=== PATIENT | male | born 1935 | race Hispanic/Latino ===

== ENCOUNTER → 2017-09-14 | Outpatient (CLI) | payer OTHER ==
[~2017-09-14] MED LIST: AMLO10TA2 PO; DUTA0.5C17 PO; INSLAN SQ; INSU100I3 SQ; OMEP40CA37 PO
== END | disposition home or self-care (01) ==
LOC: SHCH 11:19
PROVIDERS: ATTEND Internal Medicine Cardiovascular Disease
DX: R13.10 Dysphagia, unspecified (principal); R53.83 Other fatigue
CPT/HCPCS: 93306

== ENCOUNTER → 2017-10-07 | Outpatient (CLI) | payer OTHER | END | disposition home or self-care (01) | LOC: SLP 20:01 | PROVIDERS: ATTEND Internal Medicine Cardiovascular Disease | DX: G47.30 Sleep apnea, unspecified (principal); R53.83 Other fatigue; I10 Essential (primary) hypertension; E11.9 Type 2 diabetes mellitus without complications | CPT/HCPCS: 95810 ==

== ENCOUNTER → 2019-12-23 | Outpatient (CLI) | payer OTHER ==
[~2019-12-23] MED LIST changes: -AMLO10TA2 PO; +AMLO10TA7 PO; +ASCO100031 PO; +ASPI-1443 PO; +ATOR40TA71 PO; +BENZ-51 PO; +CYAN50008 PO; +DULO30CA52 PO; -DUTA0.5C17 PO; +DUTA0.5C18 PO; +FERR-82 PO; +FURO40TA5 PO; +METO50TA18 PO; +OMEP40CA13 PO; -OMEP40CA37 PO; +PANT40TA25 PO; +VITA-328 PO; +[UNRECOGNIZED DRUG - OTHER] PO; +[UNRECOGNIZED DRUG - OTHER] PO
== END | disposition home or self-care (01) ==
LOC: RAH 11:56
PROVIDERS: ATTEND Internal Medicine Cardiovascular Disease
DX: J44.9 Chronic obstructive pulmonary disease, unspecified (principal); J98.11 Atelectasis; Z95.1 Presence of aortocoronary bypass graft
CPT/HCPCS: 71046; 78582; A9540; A9558

== ENCOUNTER 2019-12-26 12:19 | Inpatient (IN) | payer OTHER ==
[~2019-12-26] VITALS: Ht 172.7 cm; Wt 82.5 kg
[~2019-12-26 12:19] MED LIST changes: -ASCO100031 PO; -ASPI-1443 PO; -ATOR40TA71 PO; -BENZ-51 PO; -CYAN50008 PO; -DULO30CA52 PO; -FERR-82 PO; -FURO40TA5 PO; -METO50TA18 PO; -PANT40TA25 PO; -VITA-328 PO; -[UNRECOGNIZED DRUG - OTHER] PO; -[UNRECOGNIZED DRUG - OTHER] PO
[2019-12-26 13:58] LABS: BASOPHILS % (AUTO) 0.6 % (0.0-5.0); EOSINOPHILS % (AUTO) 5.5 % (0.0-8.0); HEMATOCRIT 37.9 % (42-54); LYMPHOCYTES % (AUTO) 20.9 % (21.0-51.0); MEAN CORPUSCULAR HEMOGLOBIN 30.7 pg (27.0-33.0); MEAN CORPUSCULAR HGB CONC 34.3 g/dL (32.0-36.0); MEAN CORPUSCULAR VOLUME 89.6 fL (79-99); MONOCYTES % (AUTO) 8.1 % (3.0-13.0); NEUTROPHILS % (AUTO) 64.4 % (40.0-77.0); PLATELET COUNT (AUTO) 307 K/uL (130-400); RED BLOOD CELL COUNT(AUTO) 4.23 MIL/uL (4.50-6.20); RED CELL DISTRIBUTION WIDTH 13.6 % (11.0-15.5); WHITE BLOOD COUNT (AUTO) 8.3 K/uL (4.8-10.8)
[2019-12-26 14:00] LABS: CREATININE 2.1 mg/dL (0.5-1.5); POTASSIUM 3.9 mmol/L (3.5-5.1)
[2019-12-26 14:05] LABS: BILIRUBIN,TOTAL 0.4 mg/dL (0.2-1.0); TOTAL PROTEIN, SERUM 6.9 g/dL (6.0-8.3)
[2019-12-26] MEDS ORDERED: ONDANSETRON HCL 4 MG/2 ML VIAL IV PRN (18:00)
[2019-12-26] MEDS ORDERED: LACTULOSE 20 GM/30 ML UDCUP PO PRN (18:00)
[2019-12-26] MEDS ORDERED: ACETAMINOPHEN 325 MG TAB PO PRN (18:00)
[2019-12-26 19:20] LABS: APPEARANCE,URINE Clear (CLEAR); BILIRUBIN,URINE Negative (NEGATIVE); COLOR,URINE Yellow (YELLOW); GLUCOSE, URINE (UA) Negative (NEGATIVE); KETONES,URINE Negative (NEGATIVE); LEUKOCYTE ESTERASE ,URINE Trace (NEGATIVE); NITRATE,URINE Negative (NEGATIVE); OCCULT BLOOD,URINE Negative (NEGATIVE); PROTEIN,URINE 300 mg/dL (NEGATIVE); UROBILINOGEN,URINE 0.2 mg/dL (0.2-1.0)
[2019-12-26 19:29] LABS: BACTERIA,URINE Rare /HPF (None Seen); RBC,URINE 0-1 /HPF (0-1); SQUAMOUS EPITHELIAL CELL,UR Rare /HPF (0-2)
[2019-12-26] MEDS ORDERED: FAMOTIDINE 20MG TAB 20 MG TAB ONE (20:11)
[2019-12-26] MEDS ORDERED: ENOXAPARIN SODIUM 40 MG/0.4 ML SYRINGE SQ ONE (20:11)
[2019-12-26 20:40] VITALS: BP 156/84
[2019-12-27] VITALS (7 sets, daily range): BP systolic 101–159; BP diastolic 46–79
[2019-12-27] MEDS ORDERED: DEXTROSE 50%-WATER 50 ML DISP.SYRIN IV PRN
[2019-12-27] MEDS ORDERED: GLUCAGON 1MG KIT 1 MG ML IM PRN
[2019-12-27] MEDS ORDERED: ATOR40TA71 PO (00:10)
[2019-12-27] MEDS ORDERED: CYAN50008 PO (00:10)
[2019-12-27] MEDS ORDERED: FERR-82 PO (00:10)
[2019-12-27] MEDS ORDERED: PANT40TA54 PO (00:10)
[2019-12-27] MEDS ORDERED: ASPI-1443 PO (00:10)
[2019-12-27] MEDS ORDERED: VITA-328 PO (00:10)
[2019-12-27] MEDS ORDERED: BENZ-51 PO (00:10)
[2019-12-27] MEDS ORDERED: DULO30CA52 PO (00:10)
[2019-12-27] MEDS ORDERED: FURO40TA5 PO (00:10)
[2019-12-27] MEDS ORDERED: [UNRECOGNIZED DRUG - OTHER] PO (00:10)
[2019-12-27] MEDS ORDERED: [UNRECOGNIZED DRUG - OTHER] PO (00:10)
[2019-12-27] MEDS ORDERED: METO50TA18 PO (00:10)
[2019-12-27] MEDS ORDERED: ASCO100031 PO (00:10)
[2019-12-27] MEDS: ZOLPIDEM TARTRATE 5 MG TAB PO PRN ×2 (01:02→20:40)
[2019-12-27 04:44] LABS: BASOPHILS % (AUTO) 0.5 % (0.0-5.0); EOSINOPHILS % (AUTO) 4.5 % (0.0-8.0); HEMATOCRIT 35.8 % (42-54); LYMPHOCYTES % (AUTO) 28.2 % (21.0-51.0); MEAN CORPUSCULAR HGB CONC 34.6 g/dL (32.0-36.0); MEAN CORPUSCULAR VOLUME 89.5 fL (79-99); MONOCYTES % (AUTO) 9.6 % (3.0-13.0); NEUTROPHILS % (AUTO) 56.9 % (40.0-77.0); PLATELET COUNT (AUTO) 253 K/uL (130-400); RED CELL DISTRIBUTION WIDTH 13.2 % (11.0-15.5)
[2019-12-27 05:12] LABS: CREATININE 2.4 mg/dL (0.5-1.5); POTASSIUM 3.8 mmol/L (3.5-5.1); TROPONIN I 0.07 ng/mL (0.00-0.06)
[2019-12-27] MEDS: INSULIN HUMULIN R 100 UNIT/ML 3ML SQ SCH ×4 (05:44→20:39)
--- NOTE | 2019-12-27 07:09 | NUR ---
D-DIMER RESULTS CALLED IN TO [facility] SALES CLERK, PER SALES CLERK FOLLOW UP WITH TO SEE WHAT HE RECOMMENDS DUE TO PATIENT ALREADY HAS HAD A VQ SCAN OR INCREASE LOVENOX. REPORT GIVEN TO RUT BOWDEN RN. Addendum: 12/27/19 at 0712 by GUILLERMO DE LA O RN RN Amended: Links added.
[2019-12-27] MEDS ORDERED: ENOXAPARIN SODIUM 40 MG/0.4 ML SYRINGE SQ SCH (09:00)
[2019-12-27] MEDS: FAMOTIDINE 20MG TAB 20 MG TAB PO SCH (09:23)
--- NOTE | 2019-12-27 09:30 | NUR ---
Miko from [facility]/Patient states feeds and gives him his medication when she wants. SW met with pt. who is calm and cooperative. Pt. unable to report why he is admitted to hospital or provide with date. Pt. unable to report his profession prior to [facility]. Pt. reports that he resides at home with spouse. Pt. unable to provide information regarding his medications, home health, DME or provider services. SW telephoned pt's spouse who reported that pt's memory has declined recently as has his health. Spouse reports that pt. and spouse reside alone in home; two sons reside within close proximity to home and another in [place]. Spouse reports that all their sons are supportive and assist when asked or needed. Spouse reports that pt. was inpt. at [facility] December 09, 2019, then was dismissed home with PT and nursing from [facility]. Spouse reports PT's last visit was December 23, 2019 and unsure if nursing will resume post discharge from this hospitalization. Spouse reports that prior to decline, pt. was independent with all ADl's, however, now she provides more assistance including medications. Spouse reports that pt. now uses a walker, shower bench and wheelchair when needed. Couple utilizes [facility] for their prescriptions. PCP is Dr. Ly Bradley. Spouse stated that she will provide transportation home at discharge. DCP: Return home with spouse when medically cleared. Piedad Storey/Spouse [phone] Addendum: 12/27/19 at 1357 by EFREN DE LA O Amended: Links added.
--- NOTE | 2019-12-27 10:01 | NUR ---
DYSPHAGIA EVAL COMPLETED. -S/S OF ASPIRATION. RECOMMEND REGULAR TEXTURE, THIN LIQUIDS; PILLS WHOLE WITH LIQUIDS. Addendum: 12/27/19 at 1003 by ABBI FUENTES, [facility] Amended: Links added.
--- NOTE | 2019-12-27 13:59 | NUR ---
NUTRITION EDUCATION RD provided nutrition education via Phone. Pt with advanced age, Hard of hearing through phone. Pt verbalized understanding. Pt reports no GI distress, PO intake "ok". Recommend Glucerna QD. Education materials faxed to [phone]). RN Notified. RD to continue to monitor. Please notify as additional nutrition concerns arise. Thank you. Addendum: 12/27/19 at [address] Amended: Links added.
--- NOTE | 2019-12-27 15:44 | NUR ---
FURNITURE MANAGER PER [facility] FURNITURE MANAGER, [place] CT ANGIO SCAN D/T ELEVATED CR 2.4
--- NOTE | 2019-12-27 17:17 | NUR ---
DCP CM unable to meet w/pt, called spouse on facesheet, spoke to Piedad Storey , discussed dc plans. Pt is assist with ADL's prior to admission, lives at home with spouse. Has a cane, walker, wheelchair, shower chair, [employer] , and uses [facility] for meds. Feels safe to go back home, spouse able ot assist with transportation and needs as necessary. DC plan to home once stable. CM to cont to follow up. Addendum: 12/27/19 at 1718 by CONRADO LUX LVN CM Amended: Links added.
[2019-12-27] MEDS: FUROSEMIDE 10 MG/ML 2ML VIAL IV SCH (17:37)
[2019-12-27] MEDS: ENOXAPARIN SODIUM 40 MG/0.4 ML SYRINGE SQ SCH (20:40)
[2019-12-28 03:57] VITALS: BP 134/81
[2019-12-28] MEDS: FUROSEMIDE 10 MG/ML 2ML VIAL IV SCH ×2 (04:16→15:23)
[2019-12-28] MEDS: INSULIN HUMULIN R 100 UNIT/ML 3ML SQ SCH ×4 (05:14→21:30)
[2019-12-28 05:37] LABS: BASOPHILS % (AUTO) 0.4 % (0.0-5.0); HEMATOCRIT 40.1 % (42-54); LYMPHOCYTES % (AUTO) 18.6 % (21.0-51.0); MEAN CORPUSCULAR HEMOGLOBIN 31.2 pg (27.0-33.0); MEAN CORPUSCULAR HGB CONC 34.4 g/dL (32.0-36.0); MEAN CORPUSCULAR VOLUME 90.5 fL (79-99); NEUTROPHILS % (AUTO) 69.5 % (40.0-77.0); PLATELET COUNT (AUTO) 282 K/uL (130-400); RED BLOOD CELL COUNT(AUTO) 4.43 MIL/uL (4.50-6.20); RED CELL DISTRIBUTION WIDTH 13.2 % (11.0-15.5); WHITE BLOOD COUNT (AUTO) 8.4 K/uL (4.8-10.8)
[2019-12-28 05:53] LABS: ALBUMIN 3.2 g/dL (3.5-5.0); BILIRUBIN,TOTAL 0.4 mg/dL (0.2-1.0); CREATININE 2.1 mg/dL (0.5-1.5); POTASSIUM 3.4 mmol/L (3.5-5.1); TOTAL PROTEIN, SERUM 7.5 g/dL (6.0-8.3)
[2019-12-28 05:58] LABS: B-TYPE NATRIURETIC PEPTIDE 279 pg/mL (0-100)
[2019-12-28 08:24] VITALS: BP 158/93
[2019-12-28 11:28] VITALS: BP 129/77
[2019-12-28] MEDS: FAMOTIDINE 20MG TAB 20 MG TAB PO SCH (12:14)
[2019-12-28] MEDS: ENOXAPARIN SODIUM 40 MG/0.4 ML SYRINGE SQ SCH (12:14)
--- NOTE | 2019-12-28 16:27 | NUR ---
[id number] received telephone consent from spouse Piedad Storey [phone] for IM Letter. I faxed IM Letter to [phone] and placed in chart under consent tab.
[2019-12-28 16:55] VITALS: BP 133/76
[2019-12-28 20:00] VITALS: BP 145/73
[2019-12-28] MEDS: ENOXAPARIN SODIUM 80 MG/0.8 ML SQ SCH (21:27)
[2019-12-28] MEDS: ZOLPIDEM TARTRATE 5 MG TAB PO PRN (21:27)
[2019-12-29] VITALS: BP 123/86
--- NOTE | 2019-12-29 00:35 | NUR ---
NURSING ROUNDS PT IN BED RESTING WITH EYES CLOSED. PT SWEATING, CHECKED BLOOD SUGAR- 218 BS NOTED. PT WOKEN UP WITH LIGHT SHAKING AND NORMAL VOICE. WHEN ASKED HOW WAS HE FEELING, PT REPORTS "FINE". CALLED TELE MONITOR FOR RATE AND RHYTHM, SINUS TACH 102. VS WNL. DOOR LEFT OPEN TO CONTINUE TO MONITOR.
[2019-12-29] MEDS: FUROSEMIDE 10 MG/ML 2ML VIAL IV SCH ×2 (03:06→16:28)
[2019-12-29 04:00] VITALS: BP 132/82
[2019-12-29] MEDS: INSULIN HUMULIN R 100 UNIT/ML 3ML SQ SCH ×3 (06:46→16:29)
[2019-12-29 08:07] VITALS: BP 140/80
[2019-12-29 09:20] LABS: HEMATOCRIT 36.6 % (42-54); MEAN CORPUSCULAR HEMOGLOBIN 30.7 pg (27.0-33.0); MEAN CORPUSCULAR HGB CONC 34.4 g/dL (32.0-36.0); MEAN CORPUSCULAR VOLUME 89.1 fL (79-99); RED BLOOD CELL COUNT(AUTO) 4.11 MIL/uL (4.50-6.20); RED CELL DISTRIBUTION WIDTH 13.5 % (11.0-15.5); WHITE BLOOD COUNT (AUTO) 6.6 K/uL (4.8-10.8)
[2019-12-29 09:34] LABS: CREATININE 2.4 mg/dL (0.5-1.5); POTASSIUM 3.5 mmol/L (3.5-5.1)
[2019-12-29] MEDS: FAMOTIDINE 20MG TAB 20 MG TAB PO SCH (09:36)
[2019-12-29] MEDS: ENOXAPARIN SODIUM 80 MG/0.8 ML SQ SCH (09:37)
[2019-12-29 11:54] VITALS: BP 142/67
[2019-12-29 16:53] VITALS: BP 128/77
--- NOTE | 2019-12-29 17:30 | NUR ---
DISCHARGE PATIENT GIVEN DISCHARGE INSTRUCTIONS VIA TEACH BACK. 20G PIV TO LAC DISCONTINUED, TIP INTACT. PATIENT TO FOLLOW UP WITH DR. KAYDEN SOLORZANO IN 1 WEEK. NO RX GIVEN. PATIENT STABLE AT THIS TIME, WHEELED TO [facility] FOR DISCHARGE BY [facility] IR[facility].
== END 2019-12-29 17:30 | disposition home or self-care (01) | DRG 189 ==
LOC: EDH 12:19 → OBSVTOIN 16:34 → EDHIP 16:34 → 3DH 20:17
PROVIDERS: ADMIT Internal Medicine Pulmonary Disease; ATTEND Internal Medicine Pulmonary Disease
DX: J96.01 Acute respiratory failure with hypoxia (principal); J81.1 Chronic pulmonary edema; N17.9 Acute kidney failure, unspecified; K21.9 Gastro-esophageal reflux disease without esophagitis; N18.9 Chronic kidney disease, unspecified; I12.9 Hypertensive chronic kidney disease with stage 1 through stage 4 chronic kidney disease, or unspecified chronic kidney disease; F03.90 Unspecified dementia, unspecified severity, without behavioral disturbance, psychotic disturbance, mood disturbance, and anxiety; Z85.819 Personal history of malignant neoplasm of unspecified site of lip, oral cavity, and pharynx; I25.10 Atherosclerotic heart disease of native coronary artery without angina pectoris; Z95.1 Presence of aortocoronary bypass graft; Z88.8 Allergy status to other drugs, medicaments and biological substances; Z79.4 Long term (current) use of insulin
CPT/HCPCS: 36415; 71045; 80048; 80053; 81001; 82550; 82948; 83874; 83880; 84484; 85025; 85027; 85378; 92610; 93005; 93970; G0378; J1650; J1815; J1940

== ENCOUNTER → 2020-02-13 | Outpatient (CLI) | payer OTHER ==
[~2020-02-13] MED LIST changes: +ASCO100031 PO; +ASPI-1443 PO; +ATOR40TA71 PO; +BENZ-51 PO; +CYAN50008 PO; +DULO30CA52 PO; -DUTA0.5C18 PO; +FERR-82 PO; +FURO40TA5 PO; -INSLAN SQ; -INSU100I3 SQ; +METO50TA18 PO; +PANT40TA54 PO; +VITA-328 PO; +[UNRECOGNIZED DRUG - OTHER] PO; +[UNRECOGNIZED DRUG - OTHER] PO
== END | disposition home or self-care (01) ==
LOC: SHCH 09:20
PROVIDERS: ATTEND Internal Medicine Cardiovascular Disease
DX: I50.21 Acute systolic (congestive) heart failure (principal)
CPT/HCPCS: 78481; A9512

== ENCOUNTER 2020-03-22 15:41 | Emergency (ER) | payer OTHER ==
[~2020-03-22 15:41] MED LIST changes: +AMLO-258 PO; -AMLO10TA7 PO
[2020-03-22 16:27] LABS: BASOPHILS % (AUTO) 0.5 % (0.0-5.0); HEMATOCRIT 41.8 % (42-54); MEAN CORPUSCULAR HEMOGLOBIN 31.5 pg (27.0-33.0); MEAN CORPUSCULAR HGB CONC 35.2 g/dL (32.0-36.0); MEAN CORPUSCULAR VOLUME 89.5 fL (79-99); MONOCYTES % (AUTO) 9.6 % (3.0-13.0); NEUTROPHILS % (AUTO) 62.6 % (40.0-77.0); PLATELET COUNT (AUTO) 215 K/uL (130-400); RED BLOOD CELL COUNT(AUTO) 4.67 MIL/uL (4.50-6.20); WHITE BLOOD COUNT (AUTO) 7.6 K/uL (4.8-10.8)
[2020-03-22 16:45] LABS: INR 0.9 (0.85-1.15); PARTIAL THROMBOPLASTIN TIME 25.2 SEC (26.3-35.5); PROTHROMBIN TIME 9.8 SEC (9.6-11.6)
[2020-03-22 16:48] LABS: ALBUMIN 3.2 g/dL (3.5-5.0); BILIRUBIN,TOTAL 0.3 mg/dL (0.2-1.0); TOTAL PROTEIN, SERUM 7.1 g/dL (6.0-8.3)
== END 2020-03-22 21:24 | disposition home or self-care (01) ==
LOC: EDH 15:41
DX: R07.89 Other chest pain (principal); E11.9 Type 2 diabetes mellitus without complications; I10 Essential (primary) hypertension; Z88.5 Allergy status to narcotic agent; Z91.012 Allergy to eggs; Z88.8 Allergy status to other drugs, medicaments and biological substances
CPT/HCPCS: 36415; 71046; 80053; 82550; 83605; 83880; 84484; 85025; 85610; 85730; 93005

== ENCOUNTER 2020-08-16 19:21 | Inpatient (IN) | payer OTHER ==
[~2020-08-16] VITALS: Ht 170.2 cm; Wt 83.6 kg
[~2020-08-16 19:21] MED LIST changes: -BENZ-51 PO; +BENZ-70 PO; -CYAN50008 PO; +CYAN50009 PO; -OMEP40CA13 PO; +OMEP40CA21 PO
[2020-08-16 20:03] LABS: BASOPHILS % (AUTO) 0.5 % (0.0-5.0); HEMATOCRIT 37.3 % (42-54); LYMPHOCYTES % (AUTO) 20.8 % (21.0-51.0); MEAN CORPUSCULAR HEMOGLOBIN 32.1 pg (27.0-33.0); MEAN CORPUSCULAR HGB CONC 36.5 g/dL (32.0-36.0); MONOCYTES % (AUTO) 9.3 % (3.0-13.0); NEUTROPHILS % (AUTO) 67.1 % (40.0-77.0); PLATELET COUNT (AUTO) 194 K/uL (130-400); RED BLOOD CELL COUNT(AUTO) 4.24 MIL/uL (4.50-6.20); WHITE BLOOD COUNT (AUTO) 7.3 K/uL (4.8-10.8)
[2020-08-16 20:17] LABS: INR 0.97 (0.85-1.15); PROTHROMBIN TIME 10.6 SEC (9.6-11.6)
[2020-08-16 20:18] LABS: PARTIAL THROMBOPLASTIN TIME 25.5 SEC (26.3-35.5)
[2020-08-16] MEDS ORDERED: NITROGLYCERIN 0.4 MG SL TAB SL ONE (20:18)
[2020-08-16] MEDS ORDERED: NITROGLYCERIN 1GM OINT 1 INCH/1GM TD ONE (20:18)
[2020-08-16] MEDS ORDERED: MORPHINE 2 MG SYG ONE (20:22)
[2020-08-16 20:25] LABS: ALBUMIN 3.1 g/dL (3.5-5.0); BILIRUBIN,TOTAL 0.3 mg/dL (0.2-1.0); CREATININE 2.4 mg/dL (0.5-1.5); POTASSIUM 5.2 mmol/L (3.5-5.1); TOTAL PROTEIN, SERUM 6.8 g/dL (6.0-8.3)
[2020-08-16] MEDS ORDERED: ENOXAPARIN SODIUM 80 MG/0.8 ML SQ ONE (20:51)
[2020-08-16 22:10] LABS: APPEARANCE,URINE Clear (CLEAR); BILIRUBIN,URINE Negative (NEGATIVE); COLOR,URINE Yellow (YELLOW); GLUCOSE, URINE (UA) >=1000 mg/dL (NEGATIVE); KETONES,URINE Negative (NEGATIVE); LEUKOCYTE ESTERASE ,URINE Negative (NEGATIVE); NITRATE,URINE Negative (NEGATIVE); OCCULT BLOOD,URINE Negative (NEGATIVE); PROTEIN,URINE 300 mg/dL (NEGATIVE); UROBILINOGEN,URINE 0.2 mg/dL (0.2-1.0)
[2020-08-16 22:21] LABS: RBC,URINE 0-1 /HPF (0-1)
[2020-08-16 22:22] LABS: BACTERIA,URINE Few /HPF (None Seen); SQUAMOUS EPITHELIAL CELL,UR 0-2 /HPF (0-2)
[2020-08-16] MEDS ORDERED: LABETALOL 20MG SYG IV ONE (22:32)
[2020-08-17] MEDS ORDERED: MORPHINE 2 MG SYG IV PRN (03:30)
[2020-08-17] MEDS ORDERED: NITROGLYCERIN 1GM OINT 1 INCH/1GM TD SCH (03:30)
[2020-08-17] MEDS ORDERED: NITROGLYCERIN 0.4 MG SL TAB SL PRN (03:30)
[2020-08-17] MEDS ORDERED: ACETAMINOPHEN 325 MG TAB PO PRN ×2 (03:45)
[2020-08-17] MEDS ORDERED: LACTULOSE 20 GM/30 ML UDCUP PO PRN (03:45)
[2020-08-17] MEDS ORDERED: ONDANSETRON 4MG INJ IV PRN (03:45)
[2020-08-17 04:42] LABS: BASOPHILS % (AUTO) 0.8 % (0.0-5.0); EOSINOPHILS % (AUTO) 2.7 % (0.0-8.0); HEMATOCRIT 36.9 % (42-54); LYMPHOCYTES % (AUTO) 23.9 % (21.0-51.0); MEAN CORPUSCULAR HEMOGLOBIN 30.9 pg (27.0-33.0); MEAN CORPUSCULAR VOLUME 88.5 fL (79-99); MONOCYTES % (AUTO) 10.3 % (3.0-13.0); PLATELET COUNT (AUTO) 173 K/uL (130-400); RED BLOOD CELL COUNT(AUTO) 4.17 MIL/uL (4.50-6.20); RED CELL DISTRIBUTION WIDTH 12.9 % (11.0-15.5); WHITE BLOOD COUNT (AUTO) 6.6 K/uL (4.8-10.8)
[2020-08-17] MEDS ORDERED: NITROGLYCERIN 1GM OINT 1 INCH/1GM TD ONE ×2 (04:47→10:19)
[2020-08-17 04:51] LABS: ALBUMIN 2.9 g/dL (3.5-5.0); BILIRUBIN,TOTAL 0.3 mg/dL (0.2-1.0); CREATININE 2.2 mg/dL (0.5-1.5); TOTAL PROTEIN, SERUM 6.3 g/dL (6.0-8.3)
[2020-08-17 05:00] LABS: B-TYPE NATRIURETIC PEPTIDE 313 pg/mL (0-100)
[2020-08-17] MEDS ORDERED: HYDRALAZINE HCL 10 MG TABLET ONE ×2 (08:30→14:04)
[2020-08-17] MEDS ORDERED: ASPIRIN 81MG CHEW TAB ONE (08:30)
[2020-08-17] MEDS ORDERED: FAMOTIDINE 20MG VIAL IV ONE (08:31)
[2020-08-17] MEDS: FAMOTIDINE 20MG VIAL IV SCH (09:00)
[2020-08-17] MEDS: ASPIRIN 81MG CHEW TAB PO SCH (09:00)
[2020-08-17] MEDS ORDERED: ENOXAPARIN SODIUM 80 MG/0.8 ML SQ SCH (13:00)
[2020-08-17] MEDS: DEXTROSE 5 % AND 0.9 % NACL 1,000 ML IV SCH (14:00)
[2020-08-17 14:35] LABS: AMYLASE 56 U/L (25-115); LIPASE 101 U/L (114-286)
[2020-08-17] MEDS ORDERED: DEXTROSE 5 % AND 0.9 % NACL 1,000 ML IV ONE (14:53)
[2020-08-17] MEDS ORDERED: ENOXAPARIN SODIUM 80 MG/0.8 ML SQ ONE (14:53)
[2020-08-17] MEDS ORDERED: HALOPERIDOL INJ 5 MG/ML VIAL IM PRN (15:45)
[2020-08-17] MEDS ORDERED: GLUCAGON 1MG KIT 1 MG ML IM PRN (16:45)
[2020-08-17] MEDS ORDERED: DEXTROSE 50%-WATER 50 ML DISP.SYRIN IV PRN (16:45)
[2020-08-17] MEDS ORDERED: METOPROLOL TARTRATE 50 MG TAB ONE (16:47)
[2020-08-17] MEDS ORDERED: FUROSEMIDE 40 MG TABLET ONE (16:47)
[2020-08-17] MEDS ORDERED: METOPROLOL SUCCINATE 50 MG TAB.SR.24H PO SCH (17:00)
[2020-08-17] MEDS ORDERED: FUROSEMIDE 40 MG TABLET PO SCH (17:30)
[2020-08-17 21:33] VITALS: BP 207/92
[2020-08-17] MEDS: HYDRALAZINE HCL 10 MG TABLET PO SCH (21:38)
[2020-08-17] MEDS: INSULIN HUMULIN R 100 UNIT/ML 3ML SQ SCH (21:45)
[2020-08-18] VITALS (11 sets, daily range): BP systolic 125–184; BP diastolic 56–121
[2020-08-18] MEDS: DEXTROSE 5 % AND 0.9 % NACL 1,000 ML IV SCH ×2 (03:20→13:42)
[2020-08-18 05:42] LABS: HEMATOCRIT 40.5 % (42-54); MEAN CORPUSCULAR HEMOGLOBIN 31.3 pg (27.0-33.0); MEAN CORPUSCULAR HGB CONC 35.6 g/dL (32.0-36.0); RED BLOOD CELL COUNT(AUTO) 4.6 MIL/uL (4.50-6.20); RED CELL DISTRIBUTION WIDTH 12.7 % (11.0-15.5); WHITE BLOOD COUNT (AUTO) 6.9 K/uL (4.8-10.8)
[2020-08-18 06:19] LABS: CREATININE 2.1 mg/dL (0.5-1.5); POTASSIUM 3.6 mmol/L (3.5-5.1)
[2020-08-18 06:25] LABS: THYROID STIMULATING HORMONE 3.07 uIU/mL (0.36-3.74)
[2020-08-18] MEDS: INSULIN HUMULIN R 100 UNIT/ML 3ML SQ SCH ×4 (07:09→19:54)
[2020-08-18] MEDS: HYDRALAZINE HCL 10 MG TABLET PO SCH ×3 (09:26→21:14)
[2020-08-18] MEDS: METOPROLOL SUCCINATE 50 MG TAB.SR.24H PO SCH (09:26)
[2020-08-18] MEDS: FAMOTIDINE 20MG VIAL IV SCH (09:26)
[2020-08-18] MEDS: ATORVASTATIN 20 MG TABLET PO SCH (09:26)
[2020-08-18] MEDS: FUROSEMIDE 40 MG TABLET PO SCH (09:27)
[2020-08-18] MEDS: ISOSORBIDE MONO 60MG SR TAB PO SCH (09:27)
[2020-08-18] MEDS: ASPIRIN 81MG CHEW TAB PO SCH (09:27)
[2020-08-18] MEDS ORDERED: REGADENOSON 0.4 MG/5 ML PF SYG IVP SCH (11:30)
[2020-08-18] MEDS: EZETIMIBE 10 MG TAB PO SCH (11:30)
[2020-08-18] MEDS ORDERED: HYDROXYZINE 25 MG TABLET PO SCH (16:30)
[2020-08-18] MEDS ORDERED: INSU100V37 SQ (18:27)
[2020-08-18] MEDS ORDERED: INSU100I15 SQ (18:27)
[2020-08-18] MEDS: QUETIAPINE FUMARATE 25 MG TAB PO SCH (21:14)
[2020-08-18] MEDS: HYDROXYZINE 25 MG TABLET PO SCH (21:14)
[2020-08-18] MEDS: RISPERIDONE 1 MG TABLET PO SCH (21:14)
[2020-08-19] VITALS (7 sets, daily range): BP systolic 95–154; BP diastolic 50–86
[2020-08-19] MEDS: DEXTROSE 5 % AND 0.9 % NACL 1,000 ML IV SCH (05:38)
[2020-08-19] MEDS: INSULIN HUMULIN R 100 UNIT/ML 3ML SQ SCH ×4 (06:53→21:59)
[2020-08-19] MEDS: MEMANTINE HCL 5 MG TABLET PO SCH (07:32)
[2020-08-19] MEDS: HYDRALAZINE HCL 10 MG TABLET PO SCH ×3 (07:33→21:58)
[2020-08-19] MEDS: FAMOTIDINE 20MG VIAL IV SCH (07:34)
[2020-08-19] MEDS: ATORVASTATIN 20 MG TABLET PO SCH (07:34)
[2020-08-19] MEDS: FUROSEMIDE 40 MG TABLET PO SCH (07:34)
[2020-08-19] MEDS: HYDROXYZINE 25 MG TABLET PO SCH ×2 (07:34→21:58)
[2020-08-19] MEDS: METOPROLOL SUCCINATE 50 MG TAB.SR.24H PO SCH (07:34)
[2020-08-19] MEDS: ISOSORBIDE MONO 60MG SR TAB PO SCH (07:34)
[2020-08-19] MEDS: EZETIMIBE 10 MG TAB PO SCH (07:35)
[2020-08-19] MEDS: ASPIRIN 81MG CHEW TAB PO SCH (07:35)
[2020-08-19] MEDS ORDERED: METO-391 PO (10:29)
[2020-08-19] MEDS ORDERED: LISI10TA24 PO (10:29)
[2020-08-19] MEDS ORDERED: EZET10TA48 PO (10:32)
[2020-08-19 11:11] LABS: CREATININE 2.8 mg/dL (0.5-1.5)
[2020-08-19] MEDS: FLUDROCORTISONE ACETATE 0.1 MG TABLET PO SCH (13:45)
[2020-08-19] MEDS: QUETIAPINE FUMARATE 25 MG TAB PO SCH (21:57)
[2020-08-19] MEDS: RISPERIDONE 1 MG TABLET PO SCH (21:57)
[2020-08-20 04:47] LABS: POTASSIUM 3.2 mmol/L (3.5-5.1)
[2020-08-20 05:56] VITALS: BP 110/57
[2020-08-20] MEDS: INSULIN HUMULIN R 100 UNIT/ML 3ML SQ SCH ×4 (07:30→21:17)
[2020-08-20 08:00] VITALS: BP 177/87
[2020-08-20] MEDS: FAMOTIDINE 20MG VIAL IV SCH (12:18)
[2020-08-20] MEDS: METOPROLOL SUCCINATE 50 MG TAB.SR.24H PO SCH (12:18)
[2020-08-20] MEDS: 0.9%NACL 1000ML 1,000 ML IV SCH ×2 (12:18→21:13)
[2020-08-20] MEDS: HYDRALAZINE HCL 10 MG TABLET PO SCH ×3 (12:19→21:14)
[2020-08-20] MEDS: ISOSORBIDE MONO 60MG SR TAB PO SCH (12:20)
[2020-08-20] MEDS: FUROSEMIDE 40 MG TABLET PO SCH (12:20)
[2020-08-20] MEDS: FLUDROCORTISONE ACETATE 0.1 MG TABLET PO SCH (12:20)
[2020-08-20] MEDS: HYDROXYZINE 25 MG TABLET PO SCH ×2 (12:21→21:14)
[2020-08-20] MEDS: MEMANTINE HCL 5 MG TABLET PO SCH (12:21)
[2020-08-20] MEDS: ATORVASTATIN 20 MG TABLET PO SCH (12:21)
[2020-08-20] MEDS: ASPIRIN 81MG CHEW TAB PO SCH (12:21)
[2020-08-20] MEDS: EZETIMIBE 10 MG TAB PO SCH (12:21)
[2020-08-20] MEDS ORDERED: RENAL DOSE IV PRN (13:30)
[2020-08-20 16:00] VITALS: BP 134/65
[2020-08-20] MEDS ORDERED: Vitamin B Complex/Vit C/Folic Acid PO SCH (16:15)
[2020-08-20 20:41] VITALS: BP 152/58
[2020-08-20] MEDS: RISPERIDONE 1 MG TABLET PO SCH (21:14)
[2020-08-20] MEDS: QUETIAPINE FUMARATE 25 MG TAB PO SCH (21:14)
[2020-08-21 01:07] VITALS: BP 136/61
[2020-08-21 01:08] VITALS: BP 136/61
[2020-08-21] MEDS: 0.9%NACL 1000ML 1,000 ML IV SCH ×3 (02:00→18:00)
[2020-08-21 04:15] LABS: BASOPHILS % (AUTO) 0.3 % (0.0-5.0); EOSINOPHILS % (AUTO) 0.9 % (0.0-8.0); HEMATOCRIT 36.4 % (42-54); LYMPHOCYTES % (AUTO) 8.5 % (21.0-51.0); MEAN CORPUSCULAR HEMOGLOBIN 31.3 pg (27.0-33.0); MEAN CORPUSCULAR HGB CONC 34.9 g/dL (32.0-36.0); MEAN CORPUSCULAR VOLUME 89.7 fL (79-99); MONOCYTES % (AUTO) 9.7 % (3.0-13.0); NEUTROPHILS % (AUTO) 80.2 % (40.0-77.0); PLATELET COUNT (AUTO) 171 K/uL (130-400); RED BLOOD CELL COUNT(AUTO) 4.06 MIL/uL (4.50-6.20); RED CELL DISTRIBUTION WIDTH 12.6 % (11.0-15.5); WHITE BLOOD COUNT (AUTO) 9.6 K/uL (4.8-10.8)
[2020-08-21 04:23] VITALS: BP 128/61
[2020-08-21 04:49] LABS: BILIRUBIN,TOTAL 0.4 mg/dL (0.2-1.0); CREATININE 2.8 mg/dL (0.5-1.5); MAGNESIUM 1.9 mg/dL (1.80-2.40); PHOSPHORUS 3.6 mg/dL (2.5-4.9); THYROID STIMULATING HORMONE 2.19 uIU/mL (0.36-3.74); TOTAL PROTEIN, SERUM 6.5 g/dL (6.0-8.3); URIC ACID 6.9 mg/dL (2.6-7.2)
[2020-08-21] MEDS ORDERED: POTASSIUM CHLORIDE 20MEQ/100ML 100 ML IV PRN (05:30)
[2020-08-21] MEDS ORDERED: KCL 20 MEQ ERTAB PO PRN (05:30)
[2020-08-21] MEDS ORDERED: POTASSIUM CHLORIDE 10% ELIXIR 20 MEQ/15 ML UDCUP PO PRN (05:30)
[2020-08-21] MEDS ORDERED: LIDOCAINE HCL-MPF 1% 2ML VIAL IV PRN (05:30)
[2020-08-21] MEDS: POTASSIUM CHLORIDE 10% ELIXIR 20 MEQ/15 ML UDCUP ONE ×2 (05:31→06:45)
[2020-08-21] MEDS: INSULIN HUMULIN R 100 UNIT/ML 3ML SQ SCH ×4 (05:47→20:37)
[2020-08-21] MEDS: HYDRALAZINE HCL 10 MG TABLET PO SCH ×3 (09:45→20:35)
[2020-08-21] MEDS: ATORVASTATIN 20 MG TABLET PO SCH (09:45)
[2020-08-21] MEDS: EZETIMIBE 10 MG TAB PO SCH (09:45)
[2020-08-21] MEDS: FAMOTIDINE 20MG VIAL IV SCH (09:45)
[2020-08-21] MEDS: ASPIRIN 81MG CHEW TAB PO SCH (09:45)
[2020-08-21] MEDS: HYDROXYZINE 25 MG TABLET PO SCH ×2 (09:46→20:29)
[2020-08-21] MEDS: METOPROLOL SUCCINATE 50 MG TAB.SR.24H PO SCH (09:46)
[2020-08-21] MEDS: FLUDROCORTISONE ACETATE 0.1 MG TABLET PO SCH (09:46)
[2020-08-21] MEDS: MEMANTINE HCL 5 MG TABLET PO SCH (09:46)
[2020-08-21] MEDS: ISOSORBIDE MONO 60MG SR TAB PO SCH (09:46)
[2020-08-21] MEDS ORDERED: KCL 20 MEQ ERTAB PO STA (16:12)
[2020-08-21 16:16] VITALS: BP 172/77
[2020-08-21 20:16] VITALS: BP 191/83
[2020-08-21] MEDS: RISPERIDONE 1 MG TABLET PO SCH (20:29)
[2020-08-21] MEDS: QUETIAPINE FUMARATE 25 MG TAB PO SCH (20:29)
[2020-08-21 23:00] VITALS: BP 195/75
[2020-08-22] VITALS (7 sets, daily range): BP systolic 111–182; BP diastolic 61–92
[2020-08-22] MEDS: 0.9%NACL 1000ML 1,000 ML IV SCH (02:00)
[2020-08-22 04:54] LABS: CREATININE 2.3 mg/dL (0.5-1.5); MAGNESIUM 1.8 mg/dL (1.80-2.40); POTASSIUM 4.7 mmol/L (3.5-5.1)
[2020-08-22] MEDS: INSULIN HUMULIN R 100 UNIT/ML 3ML SQ SCH ×4 (05:55→20:35)
[2020-08-22 06:08] LABS: BASOPHILS % (AUTO) 0.7 % (0.0-5.0); EOSINOPHILS % (AUTO) 3.2 % (0.0-8.0); HEMATOCRIT 33.5 % (42-54); LYMPHOCYTES % (AUTO) 17.1 % (21.0-51.0); MEAN CORPUSCULAR HEMOGLOBIN 31.6 pg (27.0-33.0); MEAN CORPUSCULAR HGB CONC 35.8 g/dL (32.0-36.0); MEAN CORPUSCULAR VOLUME 88.2 fL (79-99); MONOCYTES % (AUTO) 11.5 % (3.0-13.0); NEUTROPHILS % (AUTO) 67.2 % (40.0-77.0); PLATELET COUNT (AUTO) 161 K/uL (130-400); RED CELL DISTRIBUTION WIDTH 12.6 % (11.0-15.5)
[2020-08-22] MEDS: MEMANTINE HCL 5 MG TABLET PO SCH (09:00)
[2020-08-22] MEDS: HYDROXYZINE 25 MG TABLET PO SCH (09:00)
[2020-08-22] MEDS: METOPROLOL SUCCINATE 50 MG TAB.SR.24H PO SCH (09:43)
[2020-08-22] MEDS: ISOSORBIDE MONO 60MG SR TAB PO SCH (09:43)
[2020-08-22] MEDS: EZETIMIBE 10 MG TAB PO SCH (09:44)
[2020-08-22] MEDS: ASPIRIN 81MG CHEW TAB PO SCH (09:44)
[2020-08-22] MEDS: HYDRALAZINE HCL 10 MG TABLET PO SCH ×3 (09:45→20:31)
[2020-08-22] MEDS: FAMOTIDINE 20MG VIAL IV SCH (09:46)
[2020-08-22] MEDS: PREDNISONE 20 MG TABLET PO SCH (10:15)
[2020-08-22] MEDS: AZITHROMYCIN 250 MG TABLET PO SCH (10:30)
[2020-08-22] MEDS ORDERED: RISPERIDONE 1 MG TABLET PO PRN (17:15)
[2020-08-22] MEDS ORDERED: DIPHENHYDRAMINE HCL 25 MG CAPSULE PO PRN (17:15)
[2020-08-22] MEDS: FLUTICASONE PROPIONATE 50MCG/SPRAY 16 GM BOTTLE EN SCH ×2 (17:38→20:37)
[2020-08-22] MEDS: METOPROLOL TARTRATE 50 MG TAB PO SCH (20:31)
[2020-08-22] MEDS: RISPERIDONE 1 MG TABLET PO SCH (20:31)
[2020-08-22] MEDS: ATORVASTATIN 40 MG TABLET PO SCH (20:33)
[2020-08-22] MEDS: INSULIN GLARGINE 100 UNITS/ML 10 ML VIAL SQ SCH (20:36)
[2020-08-22] MEDS ORDERED: INSULIN GLARGINE 100 UNITS/ML 10 ML VIAL SQ SCH (21:00)
[2020-08-23 03:36] VITALS: BP 165/73
[2020-08-23 05:01] LABS: CREATININE 2.3 mg/dL (0.5-1.5); POTASSIUM 4.1 mmol/L (3.5-5.1)
[2020-08-23] MEDS: HYDRALAZINE HCL 10 MG TABLET PO SCH ×3 (05:03→20:35)
[2020-08-23] MEDS: INSULIN HUMULIN R 100 UNIT/ML 3ML SQ SCH ×4 (05:44→20:37)
[2020-08-23 08:00] VITALS: BP 178/76
[2020-08-23] MEDS: FAMOTIDINE 20MG VIAL IV SCH (09:00)
[2020-08-23] MEDS ORDERED: ATORVASTATIN 40 MG TABLET PO SCH (09:00)
[2020-08-23] MEDS: ISOSORBIDE MONO 60MG SR TAB PO SCH (09:00)
[2020-08-23] MEDS: METOPROLOL TARTRATE 50 MG TAB PO SCH ×2 (09:00→20:35)
[2020-08-23] MEDS: ASPIRIN 81MG CHEW TAB PO SCH (09:00)
[2020-08-23] MEDS: EZETIMIBE 10 MG TAB PO SCH (09:00)
[2020-08-23] MEDS: ATORVASTATIN 40 MG TABLET PO SCH (09:00)
[2020-08-23] MEDS: FLUTICASONE PROPIONATE 50MCG/SPRAY 16 GM BOTTLE EN SCH ×2 (09:29→20:38)
[2020-08-23] MEDS: PREDNISONE 20 MG TABLET PO SCH (09:46)
[2020-08-23] MEDS: AZITHROMYCIN 250 MG TABLET PO SCH (10:30)
[2020-08-23 16:00] VITALS: BP 159/76
[2020-08-23 20:00] VITALS: BP 190/98
[2020-08-23] MEDS: RISPERIDONE 1 MG TABLET PO SCH (20:35)
[2020-08-23] MEDS: INSULIN GLARGINE 100 UNITS/ML 10 ML VIAL SQ SCH (20:36)
[2020-08-24] VITALS: BP 154/89
[2020-08-24 04:00] VITALS: BP 184/56
[2020-08-24] MEDS: INSULIN HUMULIN R 100 UNIT/ML 3ML SQ SCH ×3 (05:39→18:35)
[2020-08-24 06:09] LABS: HEMATOCRIT 37.3 % (42-54); MEAN CORPUSCULAR HEMOGLOBIN 31.2 pg (27.0-33.0); MEAN CORPUSCULAR HGB CONC 35.4 g/dL (32.0-36.0); MEAN CORPUSCULAR VOLUME 88.2 fL (79-99); RED BLOOD CELL COUNT(AUTO) 4.23 MIL/uL (4.50-6.20); RED CELL DISTRIBUTION WIDTH 12.2 % (11.0-15.5); WHITE BLOOD COUNT (AUTO) 8.6 K/uL (4.8-10.8)
[2020-08-24 06:15] LABS: CREATININE 2.3 mg/dL (0.5-1.5); POTASSIUM 3.8 mmol/L (3.5-5.1)
[2020-08-24 08:38] VITALS: BP 159/85
[2020-08-24] MEDS: FLUTICASONE PROPIONATE 50MCG/SPRAY 16 GM BOTTLE EN SCH (10:01)
[2020-08-24] MEDS: HYDRALAZINE HCL 10 MG TABLET PO SCH ×2 (10:02→14:52)
[2020-08-24] MEDS: FAMOTIDINE 20MG VIAL IV SCH (10:02)
[2020-08-24] MEDS: ASPIRIN 81MG CHEW TAB PO SCH (10:02)
[2020-08-24] MEDS: PREDNISONE 20 MG TABLET PO SCH (10:04)
[2020-08-24] MEDS: ISOSORBIDE MONO 60MG SR TAB PO SCH (10:04)
[2020-08-24] MEDS: METOPROLOL TARTRATE 50 MG TAB PO SCH (10:05)
[2020-08-24] MEDS: ATORVASTATIN 40 MG TABLET PO SCH (10:05)
[2020-08-24] MEDS: EZETIMIBE 10 MG TAB PO SCH (10:07)
[2020-08-24] MEDS: AZITHROMYCIN 250 MG TABLET PO SCH (10:07)
[2020-08-24 11:00] VITALS: BP 179/75
[2020-08-24 15:07] LABS: PROTEIN,URINE RANDOM 159.1 mg/dL (0-11.9)
[2020-08-24 16:00] VITALS: BP 122/77
[2020-08-24 17:06] LABS: APPEARANCE,URINE SL CLOUDY (CLEAR); BILIRUBIN,URINE NEGATIVE (NEGATIVE); COLOR,URINE YELLOW (YELLOW); GLUCOSE, URINE (UA) >=1000 mg/dL (NEGATIVE); KETONES,URINE NEGATIVE (NEGATIVE); LEUKOCYTE ESTERASE ,URINE NEGATIVE (NEGATIVE); NITRATE,URINE NEGATIVE (NEGATIVE); OCCULT BLOOD,URINE NEGATIVE (NEGATIVE); PH,URINE 5.5 (5.0-8.0); PROTEIN,URINE 100 mg/dL (NEGATIVE); UROBILINOGEN,URINE 0.2 mg/dL (0.2-1.0)
[2020-08-24 17:49] LABS: BACTERIA,URINE Rare /HPF (None Seen); RBC,URINE None Seen /HPF (0-1); SQUAMOUS EPITHELIAL CELL,UR None Seen /HPF (0-2); WBC,URINE None Seen /HPF (0-1)
== END 2020-08-24 21:15 | DRG 682 ==
LOC: DTH 19:21 → EDHIP 22:26 → OBSVTOIN 22:26 → 4AH 08-17 21:29
PROVIDERS: ADMIT Internal Medicine Critical Care Medicine; ATTEND Internal Medicine Critical Care Medicine
DX: N17.9 Acute kidney failure, unspecified (principal); I50.43 Acute on chronic combined systolic (congestive) and diastolic (congestive) heart failure; I24.8 Other forms of acute ischemic heart disease; I13.0 Hypertensive heart and chronic kidney disease with heart failure and stage 1 through stage 4 chronic kidney disease, or unspecified chronic kidney disease; I25.5 Ischemic cardiomyopathy; N18.30 Chronic kidney disease, stage 3 unspecified; E78.5 Hyperlipidemia, unspecified; E78.00 Pure hypercholesterolemia, unspecified; F03.90 Unspecified dementia, unspecified severity, without behavioral disturbance, psychotic disturbance, mood disturbance, and anxiety; Z68.30 Body mass index [BMI] 30.0-30.9, adult; E66.9 Obesity, unspecified; E11.22 Type 2 diabetes mellitus with diabetic chronic kidney disease; R09.81 Nasal congestion; I25.10 Atherosclerotic heart disease of native coronary artery without angina pectoris; E87.6 Hypokalemia; I25.2 Old myocardial infarction; Z79.4 Long term (current) use of insulin; Z79.82 Long term (current) use of aspirin; Z79.899 Other long term (current) drug therapy; Z85.819 Personal history of malignant neoplasm of unspecified site of lip, oral cavity, and pharynx; Z86.73 Personal history of transient ischemic attack (TIA), and cerebral infarction without residual deficits; Z95.1 Presence of aortocoronary bypass graft
CPT/HCPCS: 36415; 70450; 71045; 76770; 78452; 80048; 80053; 80061; 81001; 82140; 82150; 82550; 82570; 82607; 82947; 82948; 83690; 83735; 83880; 84100; 84132; 84156; 84439; 84443; 84484; 84550; 85025; 85027; 85610; 85730; 86592; 93005; 93017; 93306; 93356; 96374; 97039; A9500; G0378; J1630; J1650; J1815; J2785; J3490; J7030; J7042; Q0163